=== PATIENT | female | born 1980 | race Caucasian/White ===

== ENCOUNTER 2018-03-10 11:53 | Emergency (ER) | payer SELFPAY ==
[2018-03-10] MEDS ORDERED: ONDANSETRON 4 MG/2 ML VIAL IVP ONE (13:33)
[2018-03-10] MEDS ORDERED: NS 1,000 ML IV ONE (13:33)
[2018-03-10] MEDS ORDERED: HYDROmorphONE/DILAUDID 2 MG/ML INJ IVP ONE ×2 (13:33→15:19)
[2018-03-10 13:46] LABS: PLATELET COUNT 265 10^3/uL (150-400)
--- NOTE | 2018-03-10 13:49 | EDPHY ---
General - History Smoking Status: Current every day smoker Time Seen by Provider: 03/10/18 13:33 Narrative: CHIEF COMPLAINT: Abdominal pain HISTORY OF PRESENT ILLNESS: Patient presents from prior vehicle with complaints of abdominal pain. Her spouse is at bedside. She states that her abdominal pain started last , 7 days ago. It is described as a cramping and burning pain. It is severe and constant. It radiates through to the back. It has not improved with any the over counter medications she is attempted. No fever. Occasional lower chest pain with this. Worse with palpation, movement and inspiration. She has no lower abdominal pain. No urinary complaints. No vaginal pelvic complaints. No trauma or injuries. Previous abdominal appendectomy remotely. Last menstrual period was approximately 4 weeks ago. No other associated complaints or modifying factors. REVIEW OF SYSTEMS: 10 systems were reviewed and negative with the exception of the elements mentioned in the history of present illness. PCP: No primary care physician SPECIALISTS: None currently PAST MEDICAL HISTORY: Hypertension, appendicitis, lactose intolerant PAST SURGICAL HISTORY: Appendectomy remotely SOCIAL HISTORY: Daily smoker. Denies drug or alcohol use. Not currently working. Currently visiting from [place] FAMILY HISTORY: Noncontributory EXAMINATION: General Appearance: Alert, no distress but appears to be in discomfort. Conversing in full sentences. Head: normocephalic, atraumatic Eyes: Pupils equal and round, no conjunctival pallor or injection ENT, Mouth: Mucous membranes moist. Tongue piercing present. Airway is widely patent. No trismus. Midline uvula. Neck: Normal inspection, supple, non-tender. No meningismus. Respiratory: Lungs are clear to auscultation Cardiovascular: Regular rate and rhythm. No murmur Gastrointestinal: Abdomen is soft and nondistended. There is tenderness in the epigastrium right upper quadrant. Guarding in the epigastrium. No tympany or rigidity. No CVA tenderness. Bowel sounds are present all 4 quadrants. Umbilical piercing present. Back: non-tender, no bony abnormalities Neurological: A&O, nonfocal, normal gait Skin: Warm and dry, no rash Extremities: Nontender, no pedal edema Psychiatric: Mood and affect normal DIFFERENTIAL DIAGNOSES: Including but not limited to pancreatitis, cholecystitis, cholelithiasis, hepatitis, aortic aneurysm, gastritis, duodenitis, peptic ulcer disease, colitis , enteritis MDM: 1:30 p.m. Epigastric and right upper quadrant abdominal pain over the past week. She is very tender in the epigastrium without tympany rigidity. No CVA tenderness. No lower abdominal tenderness. Vital signs are within normal limits. She is afebrile. No SIRS criteria. I discussed with Dr. Morillo. Laboratory studies are pending. 2:00 p.m. Patient has been evaluated by Dr. Morillo. He has performed a bedside ultrasound and ordered a formal abdominal ultrasound. 3:00 p.m. Ultrasound of the abdomen has been read by radiologist no acute findings. 3:20 p.m. Patient re-evaluated. She states that her pain is returning. She still had an 8/10. I have ordered further medication for her symptoms at this time. She is providing a urine sample at this time. 4:05 p.m. Patient re-evaluated she has received the subsequent medication including GI cocktail and Dilaudid. Her pain has nearly completely resolved at this time. I had initially ordered CT scan to further delineate but she is refusing this at this time. We discussed the risks, benefits and alternatives and she is comfortable with assuming the risk of not performing the scan. She states that the is significantly better would like to go home. I do feel it is likely that she has gastritis and/or peptic ulcer disease that is undiagnosed. We discussed symptomatic medications for this and follow up with primary care physician and automobile accessories salesperson upon return back home to [place]. We discussed strict ED precautions including return here in 24 hr if no resolution of her symptoms or sooner for any worsening of symptoms, fever, chest pain or shortness of breath. She and her spouse are comfortable this plan. She smiling and discharged home stable condition. SUPERVISION: Patient was evaluated and examined in conjunction with my secondary supervising physician as documented. We have both examined the patient. CONSULTATION: None (Kobe Avila) Medical Decision Making: PHYSICIAN DOCUMENTATION: The patient was evaluated and managed by the Physician Vest Busheler and myself. I have reviewed the chart and agree with the findings and plan of care as documented. In addition, I examined the patient myself at 1350. History confirmed as upper abdominal pain for a week below the ribs and above the belly button. History of appendectomy. Physical findings as follows: Epigastric and right upper quadrant tenderness but no rebound or guarding. No lower abdominal tenderness. Appendix is out, doubt learning manager problem or urinary problem. Bedside ultrasound exam personally performed for abdominal pain and hypertension. No evidence of aortic aneurysm. Exam is performed by myself. Images archived. Plan for ultrasound right upper quadrant and labs, pain medication. I am the secondary supervising physician. (Juan Manuel Morillo) - Diagnostics Imaging Results: Imaging Impressions Abdomen Ultrasound 03/10/18 13:55 Impression: 1. No acute findings. 2. Probable hepatic steatosis. Findings discussed with JUAN MANUEL MORILLO 03/10/2018 at 14:29. - Objective Vital Signs: Initial Vital Signs Temperature (C) 98.2 F 03/10/18 12:09 Heart Rate 84 03/10/18 12:09 Respiratory Rate 18 03/10/18 12:09 Blood Pressure 173/120 H 03/10/18 12:09 O2 Sat (%) 94 03/10/18 12:09 O2 Delivery Mode Room Air Allergies/Adverse Reactions: No Known Allergies Allergy (Unverified 03/10/18 12:08) Home Medications: Medication Instructions Recorded Famotidine [Pepcid] 20 mg PO BID #28 tablet 03/10/18 Ondansetron Odt [Zofran Odt 4 mg 4 mg PO Q6 PRN #12 tab 03/10/18 (*)] Sucralfate [Carafate Oral Liquid 10 ml PO QID PRN #240 ml 03/10/18 100 mg/ml] oxyCODONE HCL/ACETAMINOPHEN 1 each PO Q4-6PRN PRN #7 tablet 03/10/18 [Percocet 5-325 mg Tablet] Laboratory Results: Laboratory Results 03/10/18 13:05 03/10/18 13:05 03/10/18 03/10/18 03/10/18 13:05 13:05 13:05 WBC 13.87 10^3/uL H 10^3/uL (3.80-9.50) RBC 4.43 10^6/uL 10^6/uL (4.18-5.33) Hgb 13.0 g/dL g/dL (12.6-16.3) Hct 38.9 % % (38.0-47.0) MCV 87.8 fL fL (81.5-99.8) MCH 29.3 pg pg (27.9-34.1) MCHC 33.4 g/dL g/dL (32.4-36.7) RDW 14.8 % % (11.5-15.2) Plt Count 265 10^3/uL 10^3/uL (150-400) MPV 9.5 fL fL (8.7-11.7) Neut % (Auto) 65.6 % % (39.3-74.2) Lymph % (Auto) 24.4 % % (15.0-45.0) [place] % (Auto) 6.8 % % (4.5-13.0) Eos % (Auto) 2.5 % % (0.6-7.6) Baso % (Auto) 0.4 % % (0.3-1.7) Nucleat RBC Rel Count 0.0 % % (0.0-0.2) Absolute Neuts (auto) 9.10 10^3/uL H 10^3/uL (1.70-6.50) Absolute Lymphs (auto) 3.39 10^3/uL H 10^3/uL (1.00-3.00) Absolute Monos (auto) 0.94 10^3/uL H 10^3/uL (0.30-0.80) Absolute Eos (auto) 0.34 10^3/uL 10^3/uL (0.03-0.40) Absolute Basos (auto) 0.06 10^3/uL 10^3/uL (0.02-0.10) Absolute Nucleated RBC 0.00 10^3/uL 10^3/uL (0-0.01) Immature Gran % 0.3 % % (0.0-1.1) Immature Gran # 0.04 10^3/uL 10^3/uL (0.00-0.10) Sodium 140 mEq/L mEq/L (135-145) Potassium 4.4 mEq/L mEq/L (3.3-5.0) Chloride 105 mEq/L mEq/L (97-110) Carbon Dioxide 25 mEq/l mEq/l (22-31) Anion Gap 10 mEq/L mEq/L (8-16) BUN 16 mg/dL mg/dL (7-23) Creatinine 0.6 mg/dL mg/dL (0.6-1.0) Estimated GFR > 60 Glucose 98 mg/dL mg/dL (70-100) Calcium 9.3 mg/dL mg/dL (8.5-10.4) Total Bilirubin 0.3 mg/dL mg/dL (0.1-1.4) Conjugated Bilirubin 0.2 mg/dL mg/dL (0.0-0.5) Unconjugated Bilirubin 0.1 mg/dL mg/dL (0.0-1.1) AST 30 IU/L IU/L (14-46) ALT 28 IU/L IU/L (9-52) Alkaline Phosphatase 62 IU/L IU/L (38-126) Total Protein 6.9 g/dL g/dL (6.3-8.2) Albumin 4.0 g/dL g/dL (3.5-5.0) Lipase 120 IU/L IU/L (23-300) Beta HCG, Qual NEGATIVE Medications Given: Discontinued Medications Al Hydroxide/Mg Hydroxide (Maalox Susp) 30 ml PO ONCE ONE Stop: 03/10/18 15:20 Last Admin: 03/10/18 15:43 Dose: 30 ml Hydromorphone HCl (Dilaudid) 1 mg IVP EDNOW ONE Stop: 03/10/18 13:34 Last Admin: 03/10/18 13:42 Dose: 1 mg Hydromorphone HCl (Dilaudid) 0.5 mg IVP EDNOW ONE Stop: 03/10/18 15:20 Last Admin: 03/10/18 15:40 Dose: 0.5 mg Hyoscyamine Sulfate (Levsin, Hyomax-Sl) 0.25 mg PO ONCE ONE Stop: 03/10/18 15:20 Last Admin: 03/10/18 15:43 Dose: 0.25 mg Sodium Chloride (Ns) 1,000 mls @ 0 mls/hr IV EDNOW ONE; Wide Open PRN Reason: Protocol Stop: 03/10/18 13:34 Last Admin: 03/10/18 13:42 Dose: 1,000 mls Lidocaine (Lidocaine 2% Viscous) 15 ml PO ONCE ONE Stop: 03/10/18 15:20 Last Admin: 03/10/18 15:43 Dose: 15 ml Ondansetron HCl (Zofran) 4 mg IVP EDNOW ONE Stop: 03/10/18 13:34 Last Admin: 03/10/18 13:42 Dose: 4 mg Promethazine HCl (Phenergan) 12.5 mg IVP EDNOW ONE Stop: 03/10/18 15:20 Last Admin: 03/10/18 15:43 Dose: Not Given Departure - Departure Disposition: Home, Routine, Self-Care Clinical Impression: Epigastric pain Condition: Good Instructions: Epigastric Pain (ED), Peptic Ulcer (ED), Gastritis (ED), Diet for Stomach Ulcers and Gastritis (ED) Additional Instructions: 1. Medications as prescribed as needed 2. Contact primary care physician in [place] to be seen upon return home. Discussed gastroenterology referral 3. Return to emergency department if no resolution of her symptoms than 24 hr. Return sooner for any worsening pain, fever, chest pain or shortness of breath, vomiting or intolerance of intake by mouth Referrals: Geoffrey Gama MD [Medical Doctor] - As per Instructions Khari Schroeder MD [Medical Doctor] - As per Instructions Prescriptions: Famotidine [Pepcid] 20 mg PO BID #28 tablet Ondansetron Odt [Zofran Odt 4 mg (*)] 4 mg PO Q6 PRN #12 tab PRN Reason: Nausea/Vomiting, Use 1st oxyCODONE HCL/ACETAMINOPHEN [Percocet 5-325 mg Tablet] 1 each PO Q4-6PRN PRN #7 tablet PRN Reason: Pain, Breakthrough Sucralfate [Carafate Oral Liquid 100 mg/ml] 10 ml PO QID PRN #240 ml PRN Reason: abdominal pain
[2018-03-10] MEDS ORDERED: LIDOCAINE 2% VISCOUS 15 ML UDCUP PO ONE (15:19)
[2018-03-10] MEDS ORDERED: MAG HYDROX/AL HYDROX/SIMETH 30 ML UDCUP PO ONE (15:19)
[2018-03-10] MEDS ORDERED: HYOSCYAMINE SULFATE 0.125 MG TAB PO ONE (15:19)
[2018-03-10] MEDS ORDERED: PROMETHAZINE HCL 25 MG/ML INJ IVP ONE (15:19)
[2018-03-10 16:16] VITALS: BP 163/110
== END 2018-03-10 16:30 | disposition home or self-care (01) ==
DX: R10.13 Epigastric pain (principal); E86.9 Volume depletion, unspecified
CPT/HCPCS: 96374; J1170; J2405; J2550